=== PATIENT | female | born 1980 | race Caucasian/White ===

== ENCOUNTER 2018-07-28 16:06 | Outpatient (CLI) | payer OTHER | END 2018-07-28 16:07 | disposition home or self-care (01) | LOC: BICRAD 16:06 | PROVIDERS: ATTEND Family Medicine | DX: R06.09 Other forms of dyspnea (principal) | CPT/HCPCS: 71046 ==

== ENCOUNTER 2018-08-21 15:45 | Inpatient (IN) | payer OTHER ==
[2018-08-21 16:44] VITALS: BMI 38.4
[2018-08-21 17:34] LABS: Hemoglobin 11.3 g/dL (12.0-16.0); Mean Corpuscular HGB CONC 32.9 g/dL (32.0-36.0); Mean Corpuscular Hemoglobin 29.7 pg (27.0-31.0); Mean Corpuscular Volume 90.4 fL (78.0-98.0); Mean Platelet Volume 10.4 fL (7.4-10.4); RBC Distribution Width 15.1 % (11.5-14.5); Red Blood Cell (RBC) Count 3.82 mill/uL (4.20-5.40); White Blood Cell (WBC) Count 12.3 thou/uL (4.8-10.8)
[2018-08-21 17:50] LABS: #Lymphocytes 3.2 thou/uL (1.20-3.40); #Monocytes 0.7 thou/uL (0.11-0.59); #Neutrophils 8.4 thou/uL (1.40-6.50); %Basophils 0.3 % (0.0-1.0); %Eosinophils 0.3 % (0.0-10.0); %Lymphocytes 26.3 % (21.0-51.0); %Monocytes 5.3 % (0.0-10.0); %Neutrophils 67.9 % (42.0-75.0); Anisocytosis SLIGHT = 6-15 cells (100X) (0-5/hpf); Large Platelets SLIGHT; MDiff Complete? YES; PLT Morphology Comment Appears Adequate; Platelet Count 143 thou/uL (130-400); Polychromasia SLIGHT = 2-3 cells (100X) (0-2/hpf)
[2018-08-21 17:52] LABS: ALT (SGPT) 14 U/L (8-55); AST (SGOT) 20 U/L (5-34); Albumin 2.9 g/dL (3.5-5.0); Alkaline Phosphatase 113 U/L (40-150); Anion Gap 11 mmol/L (10-20); BUN (Urea Nitrogen) 13 mg/dL (7.0-18.7); Bilirubin, Total 0.5 mg/dL (0.2-1.2); Calc. Creatinine Clearance 187 mL/min (70-130); Calcium 10.2 mg/dL (7.8-10.44); Carbon Dioxide 25 mmol/L (22-29); Chloride 106 mmol/L (98-107); Estimated GFR-MDRD Greater than 90; Globulin 2.9 g/dL (2.4-3.5); Glucose 78 mg/dL (70-105); Potassium 4.1 mmol/L (3.5-5.1); Protein, Total 5.8 g/dL (6.0-8.3); Sodium 138 mmol/L (136-145)
[2018-08-21 17:58] LABS: Creatinine, Urine 233.51 mg/dL (47-110)
[2018-08-21] MEDS ORDERED: Betamet Acet/Betamet Na Ph 30 MG/5 ML VIAL ONE (19:35)
[2018-08-21] MEDS: Betamet Acet/Betamet Na Ph 30 MG/5 ML VIAL IM SCH (19:50)
[2018-08-21] MEDS ORDERED: Acetaminophen 325 MG TAB PO PRN (20:20)
[2018-08-21] MEDS ORDERED: Zolpidem Tartrate 5 MG TAB PO PRN (20:20)
--- NOTE | 2018-08-21 23:37 | ULT ---
OB ULTRASOUND: 08/21/18 CLINICAL HISTORY: Gestational hypertension. FINDINGS: There is a twin intrauterine gestation. Twin labeled A for this exam is in a cephalic lie. Twin label ed B is in a breech lie. Placenta is located anteriorly. For twin A, LISETTE is calculated at 8.3 cm and for twin B 6.9 cm. cardiac activity is documented within each twin, with twin A heart rate at 1 39 beats per minute and twin B 126 beats per minute. By ultrasound, twin A is an approximate 33 week, 2 day gestation and twin B 33 week, 2 day gestation. This places the date of delivery by ultrasound at 10/07/18. Estimated weight for twin A is 2037 grams an twin B 2099 grams. anatomy is not completely/reliably assessed on the basis of emergent afterhours exam. Feta doppler evaluation of the umbilical arteries is performed for the twin gestations. The greatest systolic/diastolic ratio for fetus A is 2.4 with a pulsatility index of 0.9 and resistive index of 0. 5. For fetus B, greatest systolic/diastolic ratio is 3.5 with pulsatility index of 1.2 and resistive index of 0.7, which is at approximate 95th percentile for gestational age. IMPRESSION: Live twin intrauterine gestation. There is diminished volume of amniotic fluid, with more notable deficiency of twin B. doppler assessment reveals an elevated resistance approximating the 95th percentile for gestati onal age of twin B. Correlate clinically. POS: KARI
--- NOTE | 2018-08-22 02:46 | HP ---
DATE OF ADMISSION: 08/21/2018 ADMISSION DIAGNOSES: 1. A 33-week intrauterine with diamniotic dichorionic twins. 2. Increasing blood pressure with gestational hypertension. 3. Increasing edema. 4. Decrease in platelets. HISTORY OF PRESENT ILLNESS: Janneth is a 37-year-old white female patient primigravida LMP 12/30/2017 w ith an EDC of 10/06 at 33 weeks and 3 days gestation who is being admitted with the above diagnoses. Noted patient was diagnosed with diamniotic dichorionic twin who has been followed with co nsults with [facility] with serial ultrasounds and evaluation as well as weekly ultrasounds, umbilical artery Doppler and placed on bed rest at the onset of 30-week due to gestational hypertens ion. Initially, patient had diuresis with decreased edema when she was placed on bed rest and had im provement of symptoms, but noted this past week when evaluated on 08/19, she had a 19-pound weight ga in over the past 10 days with marked increasing edema, shortness of breath, worse with exertion and c ough with the supine position. NST had been performed with the baby is reactive. Laboratory studies obtained which revealed comprehensive metabolic panel essentially within normal limits and a CBC wit h a hemoglobin of 11.8, and platelet count of 138. Noted platelet count previously had been 235 with a downward trend down to 138 noted on 08/19. A 24-hour urine was also obtained with a total protein of 168. Patient had been at home and remained on bed rest, but on the day of admission, called the office complaining of increased edema. Blood pressure in the 158-160 systolic range, diastolic of 90 -100. She has not had any headache, scotomata, although she continues to have shortness of breath an d cough with the supine position. Noted that previously we had obtained a chest x-ray which was norm al and had continued to follow up laboratory studies weekly. PAST SURGICAL HISTORY: Significant for surgical history with sinus surgery and hysteroscopy with egg retrieval for eventual failed IVF in 2017. FAMILY HISTORY: Insignificant. MEDICATIONS: Include aspirin 162 mg daily, vitamins, ferrous sulfate t.i.d. ALLERGIES: Include GENTAMICIN. SOCIAL HISTORY: She does not smoke or drink alcohol. She is currently . 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. REVIEW OF SYSTEMS: As per HPI. PHYSICAL EXAMINATION: GENERAL: On initial physical exam, she is alert and oriented, no apparent distress. VITAL SIGNS: Blood pressure 160/82, afebrile. Noted moderate edema of the face and hands and 2+ edema of lower extremities. LUNGS: Clear to auscultation. CARDIOVASCULAR: Regular rate and rhythm without murmur. ABDOMEN: Soft, gravid uterus, nontender. SIGNIFICANT LABORATORY STUDIES: Include CBC with a white count of 12.3, hemoglobin 11.3, platelet co unt 143. Comprehensive metabolic panel with normal electrolytes, creatinine 0.71; albumin 2.9, previ ously 3.1; AST 20 and ALT 14. Urine total protein of 48 with a urine creatinine of . ASSESSMENT AND PLAN: A 33-week 3-day intrauterine with diamniotic dichorionic twin pregnan cy with gestational hypertension with increasing blood pressures and decreasing platelet count. Gely ent has been discussed with Selam, decision to admit the patient with serial blood pressure monitor ing. We will give IM steroids today and repeat in 24 hours. We will repeat an ultrasound tomorrow f or umbilical artery Doppler as well as biophysical profile and serial growth. We will most likely pl an for imminent delivery in 48-72 hours.
[2018-08-22] MEDS ORDERED: KCL IV SCH (17:45)
[2018-08-22] MEDS ORDERED: NS IV SCH (17:45)
[2018-08-22] MEDS ORDERED: Acetaminophen 500 MG TAB PO SCH (17:45)
[2018-08-22] MEDS: Betamet Acet/Betamet Na Ph 30 MG/5 ML VIAL IM SCH (19:53)
[2018-08-22] MEDS ORDERED: Labetalol 100 MG TAB PO PRN (21:47)
[2018-08-22] MEDS ORDERED: Zolpidem Tartrate 5 MG TAB PO PRN (21:48)
[2018-08-23] MEDS ORDERED: Ondansetron HCl/PF 4 MG/2 ML Vial IVP PRN ×4 (07:30→21:49)
[2018-08-23] MEDS ORDERED: Promethazine HCl 25 MG/ML VIAL IM PRN ×2 (07:30→11:25)
[2018-08-23] MEDS ORDERED: CEFAZOLIN/Water 2 GM/20 ML SYRINGE SLOW IVP SCH (07:45)
[2018-08-23] MEDS ORDERED: Bicitra 30 ML UDCUP PO SCH (07:45)
[2018-08-23] MEDS: Lactated Ringer's 1,000 ML IV SCH ×2 (08:00→16:00)
[2018-08-23 08:20] LABS: Hemoglobin 11.5 g/dL (12.0-16.0); Mean Corpuscular HGB CONC 32.1 g/dL (32.0-36.0); Mean Corpuscular Volume 93.5 fL (78.0-98.0); RBC Distribution Width 15.7 % (11.5-14.5); Red Blood Cell (RBC) Count 3.84 mill/uL (4.20-5.40); White Blood Cell (WBC) Count 16.3 thou/uL (4.8-10.8)
[2018-08-23 08:27] LABS: HBSAg Index 0.15 S/CO (0-0.99); Hep B Surf Ag Non-Reactive S/CO (NonReactive); Syphilis Antibody Nonreactive (Nonreactive); Syphilis Antibody Index 0.02 S/CO (<1.00 Non-Reactive)
[2018-08-23 08:54] LABS: Mean Platelet Volume 11.4 fL (7.4-10.4); Platelet Count 163 thou/uL (130-400)
[2018-08-23] MEDS ORDERED: Fentanyl 100 MCG/2 ML VIAL ONE (10:09)
[2018-08-23] MEDS ORDERED: Morphine PF 1 MG/ML SYR ONE (10:10)
[2018-08-23] MEDS ORDERED: Oxytocin 10 UNITS/ML VIAL ONE ×2 (10:29→11:03)
[2018-08-23] MEDS ORDERED: Ondansetron HCl/PF 4 MG/2 ML Vial ONE ×2 (10:29→13:27)
[2018-08-23] MEDS ORDERED: Ketorolac Tromethamine 30 MG/ML VIAL ONE ×3 (10:29→17:41)
[2018-08-23] MEDS ORDERED: Lidocaine 2% 10 ML INJ ONE (10:35)
[2018-08-23] MEDS ORDERED: Bupivacaine 0.75% W/DEXTROSE 8.25% 2 ML AMP ONE (10:35)
[2018-08-23] MEDS ORDERED: Naloxone HCl 0.4 mg/ml Vial IVP PRN ×2 (11:25)
[2018-08-23] MEDS ORDERED: Naloxone HCl 0.4 mg/ml Vial IV PRN (11:25)
[2018-08-23] MEDS ORDERED: Eucerin (Mineral Oil/Petrolatum,White) 30 gm Jar TOP PRN (11:25)
[2018-08-23] MEDS ORDERED: diphenhydrAMINE 50 MG/ML VIAL IVP PRN (11:25)
[2018-08-23] MEDS ORDERED: Promethazine HCl 25 MG SUPP PR PRN (11:25)
[2018-08-23] MEDS ORDERED: HYDROmorphone 2 MG/ML VIAL SLOW IVP PRN (11:25)
[2018-08-23] MEDS ORDERED: Meperidine HCl/PF 25 MG/ML VIAL SLOW IVP PRN (11:25)
[2018-08-23] MEDS ORDERED: L&D-Morphine 4 MG/ML VIAL SLOW IVP PRN (11:25)
[2018-08-23] MEDS ORDERED: Communication Order-Pharmacy FS SCH (11:30)
[2018-08-23] MEDS ORDERED: Meperidine HCl/PF 25 MG/ML VIAL ONE (12:58)
[2018-08-23] MEDS ORDERED: Morphine 4 MG/ML VIAL ONE (14:55)
[2018-08-23] MEDS ORDERED: Morphine 4 MG/ML VIAL SLOW IVP PRN (15:22)
[2018-08-23] MEDS ORDERED: Acetaminophen 1,000 MG in Premix Bag 1 BAG IVPB PRN (17:00)
--- NOTE | 2018-08-23 18:24 | OP ---
DATE OF SURGERY: 08/23/2018 PREOPERATIVE DIAGNOSES: A 33-week 6-day intrauterine with diamniotic dichorionic twins wit h oligohydramnios and labile gestational hypertension. POSTOPERATIVE DIAGNOSES: A 33-week 6-day intrauterine with diamniotic dichorionic twins wi th oligohydramnios and labile gestational hypertension, status post delivery. PROCEDURE PERFORMED: Primary low transverse section. SURGEON: Celena Daily M.D. ASSISTANTS: Dr. Ke Coates and Dr. Becky Olson. ANESTHESIA: Spinal anesthetic. COMPLICATIONS: None. PROCEDURE IN DETAIL: After adequate spinal anesthetic, the patient was placed in supine position. A wedge was placed under her right flank. The Vang catheter was placed and then the abdomen was prep ped and draped in the usual sterile technique. A Pfannenstiel incision was made in the inferior aspe ct of the abdomen. Subcutaneous opened with sharp dissection. Fascia opened with sharp dissection. Peritoneum was opened with sharp and blunt dissection. It was noted that the abdomen was filled wit h a gravid uterus. A large Shorty O retractor was placed and a low transverse incision was made on t he uterus. Membranes were ruptured for twin A, clear fluid and a viable female was delivered from vertex presentation without difficulty. Infant breathed and cried spontaneously. Cord was clam ped and cut and infant was handed to care of the neonatology team. Cord blood was obtained. Membran es were ruptured for baby B and a viable female infant was delivered from footling breech presentatio n without difficulty. Again breathed and cried spontaneously. Cord was clamped and cut and i nfant handed to care of neonatology team. Cord blood was obtained and the placenta was then delivere d manually. Noted, there was a velamentous cord insertion for twin A. The placenta was sent to path ology. [place] and lower edges were grasped with ring forceps and the hysterotomy was then closed in co ntinuous fashion using 0 Monocryl. A second layer on the left lateral edge was used for good hemosta sis. Examination of the uterus, fallopian tubes, ovaries appeared all within normal limits and there was no further bleeding. Clots were removed. The Shorty O retractor was removed and the peritoneum was then closed in continuous fashion using 2-0 Vicryl. The fascia was then closed in continuous fa shion using 0 Vicryl. The sponge and instrument counts were correct. A running layer of 2-0 chromic was then used to approximate the subcutaneous tissue and the skin was then closed using 4-0 Vicryl i n subcuticular fashion. Dermabond was applied and a dressing was placed. Patient tolerated the proc edure well and went to the recovery room in good condition. Noted, the babies were transferred to [facility] in good condition. Baby A is a viable female, weight 4 pounds 3 ounces, with Apgars 6 at 1 mi nute and 8 at 5 minutes. Baby B is a viable female , weight 4 pounds 2 ounces with Apgars 6 at 1 minute, 8 at 5 minutes. Quantitative blood loss is pending at this time. No other complications.
[2018-08-23] MEDS ORDERED: Labetalol 100 MG TAB PO PRN (18:29)
[2018-08-23] MEDS ORDERED: Ketorolac Tromethamine 30 MG/ML VIAL IVP PRN (19:00)
[2018-08-23] MEDS ORDERED: Ketorolac Tromethamine 30 MG/ML VIAL IVP SCH (19:00)
[2018-08-23] MEDS ORDERED: Adacel (T-DAP) 0.5 ML VIAL IM ONE (21:49)
[2018-08-23] MEDS ORDERED: diphenhydrAMINE 25 MG CAP PO PRN (21:49)
[2018-08-23] MEDS ORDERED: Acetaminophen 325 MG TAB PO PRN (21:49)
[2018-08-24] MEDS: Labetalol 100 MG TAB PO SCH ×3 (03:09→20:48)
[2018-08-24] MEDS: Acetaminophen/Codeine 30-300mg Tablet PO PRN (03:09)
[2018-08-24 05:07] LABS: Hemoglobin 9.4 g/dL (12.0-16.0); Mean Corpuscular HGB CONC 32.6 g/dL (32.0-36.0); Mean Corpuscular Hemoglobin 30.4 pg (27.0-31.0); Mean Corpuscular Volume 93.2 fL (78.0-98.0); Mean Platelet Volume 10.2 fL (7.4-10.4); Platelet Count 115 thou/uL (130-400); RBC Distribution Width 15.6 % (11.5-14.5); Red Blood Cell (RBC) Count 3.09 mill/uL (4.20-5.40); White Blood Cell (WBC) Count 16.3 thou/uL (4.8-10.8)
[2018-08-24] MEDS: Ibuprofen 800 MG TAB PO SCH ×3 (07:59→23:22)
[2018-08-24] MEDS: Prenatal Vitamin 1 TAB PO SCH (07:59)
[2018-08-24] MEDS: Ferrous Sulfate 325 MG TAB PO SCH ×2 (07:59→16:27)
[2018-08-24] MEDS: Docusate Calcium (SURFAK) 240 MG CAP PO SCH ×2 (07:59→20:42)
[2018-08-24] MEDS: HYDROcodone/Acetaminophen 5/325 mg Tablet PO PRN ×4 (08:01→23:22)
[2018-08-24] MEDS: Labetalol 100 MG TAB PO PRN ×2 (09:17→20:47)
[2018-08-25] MEDS: HYDROcodone/Acetaminophen 5/325 mg Tablet PO PRN ×5 (03:30→23:09)
--- NOTE | 2018-08-25 05:22 | PDOC.EVN ---
Event Note - Event Note Event Note: Notified by RN that systolic BP was 160...has order to administer labetalol po if parameter reached (order by pennie). I authorized the medication dose oral to be given now.
[2018-08-25] MEDS: Labetalol 100 MG TAB PO PRN (05:23)
[2018-08-25 06:57] LABS: Hemoglobin 9.9 g/dL (12.0-16.0); Mean Corpuscular HGB CONC 31.8 g/dL (32.0-36.0); Mean Corpuscular Hemoglobin 29.8 pg (27.0-31.0); Mean Corpuscular Volume 93.6 fL (78.0-98.0); Mean Platelet Volume 9.6 fL (7.4-10.4); Platelet Count 120 thou/uL (130-400); RBC Distribution Width 15.5 % (11.5-14.5); Red Blood Cell (RBC) Count 3.31 mill/uL (4.20-5.40); White Blood Cell (WBC) Count 15.8 thou/uL (4.8-10.8)
[2018-08-25] MEDS: Ferrous Sulfate 325 MG TAB PO SCH ×2 (08:16→16:49)
[2018-08-25] MEDS: Prenatal Vitamin 1 TAB PO SCH (08:16)
[2018-08-25] MEDS: Ibuprofen 800 MG TAB PO SCH ×3 (08:16→23:09)
[2018-08-25] MEDS: Docusate Calcium (SURFAK) 240 MG CAP PO SCH ×2 (08:17→20:45)
[2018-08-25] MEDS: Labetalol 100 MG TAB PO SCH ×3 (08:20→20:45)
[2018-08-25] MEDS ORDERED: Furosemide 20 MG TAB PO SCH ×2 (08:30→18:45)
[2018-08-26] MEDS: HYDROcodone/Acetaminophen 5/325 mg Tablet PO PRN ×3 (05:43→19:07)
[2018-08-26 08:39] LABS: Bilirubin Negative (Negative); Blood, Urine Large (Negative); Clarity CLEAR (Clear); Glucose, Urine (Dipstick) Negative (Negative); Leukocyte Negative (Negative); Nitrite Negative (Negative); Protein, Urine (Dipstick) Negative (Neg-Trace); Specific Gravity, Urine 1.006 (1.002-1.036); Urobilinogen 0.2 mg/dL (0.2-1.0); pH, Urine 6.5 (5.0-9.0)
[2018-08-26 08:42] LABS: Bacteria/HPF None Seen HPF (None Seen); Hyaline Casts/LPF 0-3 HYALINE CAST LPF (0-3 Hyaline); Pathc Cast-AUWi Flag 0.29 (0-2.49); Squamous Epithelial 0-3 HPF (0-3); WBC/HPF 0-3 HPF (0-3)
[2018-08-26] MEDS: Labetalol 100 MG TAB PO SCH ×2 (09:58→20:27)
[2018-08-26] MEDS: Ferrous Sulfate 325 MG TAB PO SCH ×2 (09:59→19:07)
[2018-08-26] MEDS: Ibuprofen 800 MG TAB PO SCH ×2 (09:59→14:14)
[2018-08-26] MEDS: Prenatal Vitamin 1 TAB PO SCH (09:59)
[2018-08-26] MEDS: Docusate Calcium (SURFAK) 240 MG CAP PO SCH ×2 (10:01→20:31)
[2018-08-26 11:02] LABS: ALT (SGPT) 26 U/L (8-55); AST (SGOT) 31 U/L (5-34); Albumin 2.9 g/dL (3.5-5.0); Alkaline Phosphatase 95 U/L (40-150); Anion Gap 11 mmol/L (10-20); BUN (Urea Nitrogen) 14 mg/dL (7.0-18.7); Bilirubin, Total 0.4 mg/dL (0.2-1.2); Calc. Creatinine Clearance 171 mL/min (70-130); Calcium 9.2 mg/dL (7.8-10.44); Carbon Dioxide 30 mmol/L (22-29); Chloride 104 mmol/L (98-107); Estimated GFR-MDRD 85; Globulin 2.9 g/dL (2.4-3.5); Glucose 88 mg/dL (70-105); Potassium 4.1 mmol/L (3.5-5.1); Protein, Total 5.8 g/dL (6.0-8.3); Sodium 141 mmol/L (136-145)
[2018-08-26] MEDS: Furosemide 20 MG TAB PO SCH (14:14)
[2018-08-26] MEDS ORDERED: hydrALAZINE 10 MG TAB PO SCH (18:00)
[2018-08-27] MEDS: Acetaminophen/Codeine 30-300mg Tablet PO PRN (01:54)
[2018-08-27] MEDS: Ibuprofen 800 MG TAB PO SCH ×3 (01:54→18:12)
[2018-08-27] MEDS ORDERED: hydrALAZINE 10 MG TAB PO SCH (03:00)
[2018-08-27] MEDS: hydrALAZINE 10 MG TAB PO PRN ×4 (05:00→11:40)
[2018-08-27] MEDS: HYDROcodone/Acetaminophen 5/325 mg Tablet PO PRN ×2 (07:35→18:12)
[2018-08-27] MEDS: Prenatal Vitamin 1 TAB PO SCH (07:36)
[2018-08-27] MEDS: Docusate Calcium (SURFAK) 240 MG CAP PO SCH (07:36)
[2018-08-27] MEDS: Labetalol 100 MG TAB PO SCH (07:36)
[2018-08-27] MEDS: Ferrous Sulfate 325 MG TAB PO SCH ×2 (07:37→18:12)
[2018-08-27] MEDS: Furosemide 20 MG TAB PO SCH ×2 (07:37→13:36)
--- NOTE | 2018-08-27 08:12 | PDOC.PP ---
Post Progress Note Post Day #: 3 Subjective: Late entry - this note is for 08/26/18 - Little diuresis so far, BP remains high , pain is controlled and continues to pump breasts but little milk in yet. PO intake tolerated: yes Flatus: yes Ambulation: yes Vital Signs (12 hours) Pulse Resp BP BP BP Pulse Ox 08/27/18 07:37 67 08/27/18 07:36 67 08/27/18 06:17 67 192/93 H 08/27/18 06:15 66 193/101 H 08/27/18 05:00 65 185/93 H 185/93 H 08/27/18 03:04 65 177/85 H 08/27/18 02:10 65 177/85 H 08/26/18 22:00 69 18 138/75 98 08/26/18 20:27 63 181/84 H Weight Weight 237 lb - Physical Examination General: NAD Cardiovascular: no m/r/g, RRR Respiratory: clear to auscultation bilaterally, non-labored breathing Abdominal: + bowel sounds, lochia, no distention, appropriately TTP Extremities: negative homans (B) (3+ edema to the waist bilaterally, minimal change since delivery) Skin: CS incision dry & intact, no rash Result Diagrams: 08/25/18 06:43 08/26/18 10:08 Additional Labs: Post Labs Blood Type O NEGATIVE 08/22/18 17:44 Hep Bs Antigen Non-Reactive S/CO (NonReactive) 08/22/18 17:44 (1) Status post primary low transverse section Code(s): Z98.891 - HISTORY OF UTERINE SCAR FROM PREVIOUS SURGERY Status: Acute (2) Gestational hypertension Code(s): O13.9 - GESTATIONAL HTN W/O SIGNIFICANT PROTEINURIA, UNSP TRIMESTER Status: Acute (3) Twin Code(s): O30.009 - TWIN , UNSP NUM PLCNTA & AMNIO SACS, UNSP TRIMESTER Status: Acute - Assessment/Plan Routine post-op care. Keep in hospital for management of severe BP - not responsive to meds so far. Will try lasix today - renal function is normal. Edema is not changed yet. Continue to pump for breastmilk. Babies doing well in NICU.
[2018-08-27] MEDS ORDERED: Hydrochlorothiazide 25 MG TAB PO SCH (09:00)
[2018-08-27 09:19] VITALS: TEMP 98.2
--- NOTE | 2018-08-27 17:12 | PDOC.PP ---
Post Progress Note Post Day #: 4 Subjective: Doing well. Pain controlled and getting less each day. BP remains elevated but no real diuresis until last night. UOP increasing. Swelling finally starting to go down. PO intake tolerated: yes Flatus: yes Ambulation: yes Vital Signs (12 hours) Temp Pulse Resp BP BP Pulse Ox 08/27/18 13:00 74 18 180/88 H 08/27/18 11:40 67 08/27/18 11:37 67 18 183/91 H 08/27/18 09:52 77 20 164/81 H 08/27/18 09:13 67 08/27/18 08:35 78 20 177/80 H 08/27/18 07:37 67 08/27/18 07:36 67 08/27/18 07:35 98.2 F 64 20 210/97 H 95 08/27/18 06:17 67 192/93 H 08/27/18 06:15 66 193/101 H Weight Weight 237 lb - Physical Examination General: NAD Cardiovascular: no m/r/g, RRR Respiratory: clear to auscultation bilaterally, non-labored breathing Abdominal: + bowel sounds, lochia, no distention, appropriately TTP Skin: CS incision dry & intact Psychiatric: A&Ox3, normal affect Result Diagrams: 08/25/18 06:43 08/26/18 10:08 Additional Labs: Post Labs Blood Type O NEGATIVE 08/22/18 17:44 Hep Bs Antigen Non-Reactive S/CO (NonReactive) 08/22/18 17:44 (1) Status post primary low transverse section Code(s): Z98.891 - HISTORY OF UTERINE SCAR FROM PREVIOUS SURGERY Status: Acute (2) Gestational hypertension Code(s): O13.9 - GESTATIONAL HTN W/O SIGNIFICANT PROTEINURIA, UNSP TRIMESTER Status: Acute (3) Twin Code(s): O30.009 - TWIN , UNSP NUM PLCNTA & AMNIO SACS, UNSP TRIMESTER Status: Acute - Assessment/Plan Now stable for D/C. Starting to diurese. D/C meds will be labetolol 200mg BID, Hydrochlorothiazide 25mg daily, Hydralazine 10mg QID PRN. F/U with AD in 2 weeks. Keep log of BP at home. Will stay B&B or in the [facility] room.
--- NOTE | 2018-08-27 17:16 | PDISCHARGE ---
Discharge - Disposition Disposition: HOME - Patient Instructions - Referrals and PCP Follow-Up Referrals and PCP Follow-Up: Celena Daily MD [Primary Care Provider] - 14 Days - Activity Instructions Activity:: Activity Restrictions (Pelvic rest, no heavy lifting) - Nourishment Instructions Nourishment:: Regular Diet - Therapy Instructions Therapies:: Not Applicable - Equipment/Supply Instructions Equipment/Supplies:: Not Applicable - IV Therapy Instructions IV Therapy:: Not Applicable
[2018-08-27 18:18] VITALS: BP 147/87
== END 2018-08-27 18:25 | disposition home or self-care (01) | DRG 787 ==
LOC: L&D/OP 15:45 → EDSTATUS 15:51 → L&D 15:52 → 3SW 08-23 21:36
PROVIDERS: ADMIT Family Medicine; ATTEND Family Medicine
PROC: 10D00Z1 Extraction of Products of Conception, Low, Open Approach (ICD-10-PCS; principal; 2018-08-23)
DX: O30.043 Twin pregnancy, dichorionic/diamniotic, third trimester (principal); O41.03X0 Oligohydramnios, third trimester, not applicable or unspecified; O13.4 Gestational [pregnancy-induced] hypertension without significant proteinuria, complicating childbirth; Z3A.33 33 weeks gestation of pregnancy; Z37.2 Twins, both liveborn; O99.12 Other diseases of the blood and blood-forming organs and certain disorders involving the immune mechanism complicating childbirth; D69.6 Thrombocytopenia, unspecified; Z88.1 Allergy status to other antibiotic agents
CPT/HCPCS: 36415; 51702; 76810; 80053; 81001; 82570; 84156; 85025; 85027; 86780; 86850; 86900; 86901; 87086; 87340; 88307; 90715; J0131; J0702; J1885; J2175; J2270; J2274; J2405; J2590; J3010; J3480; J3490; J7050

== ENCOUNTER 2023-12-18 08:10 | Outpatient (CLI) | payer BC ==
[2023-12-18] MEDS ORDERED: Iopamidol 370 76% 100 ML VIAL ONE (09:36)
== END 2023-12-18 08:11 | disposition home or self-care (01) ==
LOC: CT 08:10
PROVIDERS: ATTEND Family Medicine
DX: R19.09 Other intra-abdominal and pelvic swelling, mass and lump (principal); K40.90 Unilateral inguinal hernia, without obstruction or gangrene, not specified as recurrent
CPT/HCPCS: 74177

== ENCOUNTER 2024-01-23 11:37 | Outpatient (CLI) | payer BC ==
[2024-01-23 12:39] LABS: #Basophils 0.1 10x3/uL (0.0-0.2); #Eosinphils 0.2 10x3/uL (0.0-0.5); #Monocytes 0.5 10x3/uL (0.0-1.1); #Neutrophils 5.2 10x3/uL (1.5-8.4); %Basophils 0.6 % (0.0-2.0); %Eosinophils 2.3 % (0.0-6.0); %Lymphocytes 37.4 % (18.0-47.0); %Monocytes 5.1 % (0.0-10.0); %Neutrophils 54.5 % (40.0-75.0); Hematocrit 44.6 % (34.9-44.5); Hemoglobin 15.1 g/dL (12.0-15.5); Mean Corpuscular HGB CONC 33.9 g/dL (32.0-36.0); Mean Corpuscular Hemoglobin 29.8 pg (27.0-33.0); Mean Corpuscular Volume 88.1 fl (81.6-98.3); Mean Platelet Volume 11.4 fl (7.4-10.4); Platelet Count 254 10x3/uL (150-450); RBC Distribution Width 13.8 % (11.5-14.5); Red Blood Cell (RBC) Count 5.06 10x6/uL (3.90-5.03); White Blood Cell (WBC) Count 9.5 10x3/uL (3.5-10.5)
[2024-01-23 12:42] LABS: BHCG - Serum Negative (NEGATIVE); Pregs Control Background? CLEAR/WHITE (CLR/WHITE); Pregs Control Bar Appear? YES (CONTROL BAR)
[2024-01-23 12:49] LABS: ALT (SGPT) 16 U/L (8-55); AST (SGOT) 19 U/L (5-34); Albumin 4.4 g/dL (3.5-5.0); Alkaline Phosphatase 77 U/L (40-110); Anion Gap 12 mmol/L (10-20); BUN (Urea Nitrogen) 17 mg/dL (7.0-18.7); Bilirubin, Total 1.3 mg/dL (0.2-1.2); Calc. Creatinine Clearance 0 mL/min (70-130); Calcium 9.3 mg/dL (7.8-10.44); Carbon Dioxide 26 mmol/L (22-29); Chloride 105 mmol/L (98-107); Estimated GFR 85; Globulin 2.6 g/dL (2.4-3.5); Glucose 92 mg/dL (70-105); Potassium 4.2 mmol/L (3.5-5.1); Sodium 139 mmol/L (136-145)
== END 2024-01-23 11:38 | disposition home or self-care (01) ==
LOC: LABBT 11:37
PROVIDERS: ATTEND Surgery
DX: Z01.812 Encounter for preprocedural laboratory examination (principal); K40.90 Unilateral inguinal hernia, without obstruction or gangrene, not specified as recurrent
CPT/HCPCS: 80053; 84703; 85025